=== PATIENT | male | born 1995 | race Caucasian/White ===

== ENCOUNTER 2017-04-01 23:21 | Emergency (ER) | payer OTHER, SELFPAY ==
[~2017-04-01] VITALS: Ht 177.8 cm; Wt 61.2 kg
[~2017-04-01 23:21] MED LIST: CONC36TA2 PO; CONC36TA4 PO; GUAN1TA PO; INTU2TAB PO; INTUNIV PO; MELO7.5S PO; OMEP40CA2 PO; RISP0.5T23 PO; RISP0.5T3 PO; RISP1TAB41 PO; TRAM50TA2 PO; ZOLO20CO PO; ZOLO25TA PO
[2017-04-01 23:22] VITALS: BP 134/74
[2017-04-02] MEDS ORDERED: KETOROLAC 30 MG/ML VIAL (J1885) IV ONE (01:45)
[2017-04-02] MEDS ORDERED: KETOROLAC 60 MG/2 ML VIAL (J1885) IM ONE (02:00)
--- NOTE | 2017-04-02 08:49 | REP ---
Right elbow: Four views Mineralization and joint spaces are normal. There is no fracture or dislocation. There is no effusion. There are no calcifications or foreign bodies. Impression: Negative right elbow. Signed by Al Morel MD 04/02/2017 08:40 A
== END 2017-04-02 02:03 | disposition home or self-care (01) ==
LOC: M ED 23:44
DX: S50.01XA Contusion of right elbow, initial encounter (principal); W51.XXXA Accidental striking against or bumped into by another person, initial encounter; Y92.410 Unspecified street and highway as the place of occurrence of the external cause; Y93.89 Activity, other specified; Y99.8 Other external cause status; F32.9 Major depressive disorder, single episode, unspecified; F17.200 Nicotine dependence, unspecified, uncomplicated; Z91.02 Food additives allergy status

== ENCOUNTER → 2017-05-19 | Outpatient (REF) | payer OTHER ==
[~2017-05-19] MED LIST changes: +ACET30TAB PO; +AMOX875T PO; +LEVA750T7 PO; -RISP1TAB41 PO; +RISP1TAB42 PO
== END ==
LOC: M LAB REF 16:20
PROVIDERS: ATTEND Physician Assistant Medical
DX: Z20.2 Contact with and (suspected) exposure to infections with a predominantly sexual mode of transmission (principal)

== ENCOUNTER 2017-08-15 06:12 | Emergency (ER) | payer OTHER, SELFPAY ==
[~2017-08-15] VITALS: Ht 175.3 cm; Wt 64.0 kg
[~2017-08-15 06:12] MED LIST changes: -ACET30TAB PO; -AMOX875T PO; -LEVA750T7 PO
[2017-08-15 06:22] VITALS: BP 133/83
[2017-08-15] MEDS ORDERED: ACET30TAB PO (07:01)
[2017-08-15] MEDS ORDERED: AMOX875T PO (07:01)
[2017-08-25] MEDS ORDERED: LEVA750T7 PO (07:30)
== END 2017-08-15 07:21 | disposition home or self-care (01) ==
LOC: M ED 06:12
DX: K02.9 Dental caries, unspecified (principal); F99 Mental disorder, not otherwise specified; Z79.899 Other long term (current) drug therapy; Z91.048 Other nonmedicinal substance allergy status; F17.210 Nicotine dependence, cigarettes, uncomplicated

== ENCOUNTER 2017-10-02 22:09 | Emergency (ER) | payer OTHER ==
[~2017-10-02] VITALS: Ht 180.3 cm; Wt 59.1 kg
[~2017-10-02 22:09] MED LIST changes: +ACET30TAB PO; +AMOX875T PO; +LEVA750T7 PO
[2017-10-03 00:03] VITALS: BP 141/61
[2017-10-03] MEDS ORDERED: ACETAMINOPHEN 325 MG TAB PO ONE (00:15)
--- NOTE | 2017-10-03 07:45 | REP ---
PA and lateral chest: Comparison is 12/27/2013. The lung [place] are clear. The cardiac size is normal The rand, mediastinum, and bony thorax are unremarkable. Impression: Negative PA and lateral chest. There is no interval change. Signed by Al Morel MD 10/03/2017 07:36 A
== END 2017-10-03 00:15 | disposition home or self-care (01) ==
LOC: M ED 22:09
DX: B34.9 Viral infection, unspecified (principal); J45.909 Unspecified asthma, uncomplicated; F90.9 Attention-deficit hyperactivity disorder, unspecified type; Z91.02 Food additives allergy status

== ENCOUNTER 2017-10-20 00:46 | Emergency (ER) | payer OTHER ==
[2017-10-20] MEDS: methylPREDNISolone INJ 125 MG/2 ML VIAL (J2930) IM (02:30)
== END 2017-10-20 02:33 | disposition home or self-care (01) ==
LOC: M ED 00:46
DX: J06.9 Acute upper respiratory infection, unspecified (principal); J40 Bronchitis, not specified as acute or chronic; F90.9 Attention-deficit hyperactivity disorder, unspecified type; F17.210 Nicotine dependence, cigarettes, uncomplicated; Z91.02 Food additives allergy status
CPT/HCPCS: 71020

== ENCOUNTER 2017-11-18 22:57 | Emergency (ER) | payer OTHER | END 2017-11-19 00:33 | disposition left against medical advice (07) | LOC: M ED 22:57 | DX: Z53.21 Procedure and treatment not carried out due to patient leaving prior to being seen by health care provider (principal) ==

== ENCOUNTER 2018-07-03 01:43 | Emergency (ER) | payer OTHER ==
[2018-07-03] MEDS: CEPHALEXIN 500 MG CAP PO (02:07)
[2018-07-03] MEDS: IBUPROFEN 600 MG TAB PO (02:07)
== END 2018-07-03 02:15 | disposition home or self-care (01) ==
LOC: M ED 01:43
DX: L60.0 Ingrowing nail (principal); F17.200 Nicotine dependence, unspecified, uncomplicated
CPT/HCPCS: 99282

== ENCOUNTER 2018-07-19 02:45 | Emergency (ER) | payer OTHER | END 2018-07-19 03:51 | disposition home or self-care (01) | LOC: M ED 02:45 | DX: K03.2 Erosion of teeth (principal); K08.89 Other specified disorders of teeth and supporting structures; F17.200 Nicotine dependence, unspecified, uncomplicated; Z79.2 Long term (current) use of antibiotics; Z91.02 Food additives allergy status | CPT/HCPCS: 64400 ==

== ENCOUNTER 2018-12-14 03:47 | Emergency (ER) | payer OTHER ==
[~2018-12-14] VITALS: Ht 180.3 cm; Wt 60.9 kg
[~2018-12-14 03:47] MED LIST changes: +ACET1TAB55 PO; +AMOX875T; +CLEO300C2 PO; +KEFL500C17 PO; +PRED20TA PO; +ZITHTAB PO
[2018-12-14] MEDS ORDERED: PROAAER10 INH (03:55)
[2018-12-14] MEDS ORDERED: NS 1,000 ML IV ONE (04:15)
[2018-12-14] MEDS ORDERED: BENZONATATE 100 MG CAP PO ONE (04:30)
[2018-12-14 04:47] LABS: INFLUENZA A AMPLIFICATION NEGATIVE (NEGATIVE); INFLUENZA B AMPLIFICATION NEGATIVE (NEGATIVE)
[2018-12-14] MEDS ORDERED: ALBUTEROL 90 MCG/ACT 8GM HFA INHALER INH ONE (05:00)
[2018-12-14] MEDS ORDERED: TESS100C PO (05:05)
[2018-12-14 05:15] VITALS: BP 130/69
--- NOTE | 2018-12-14 06:00 | REP ---
Clinical: Cough and dyspnea . Comparison: 10/20/2017 . Technique: PA and lateral. Findings: The mediastinum and cardiac silhouette are normal. The lung [place] are clear and without acute consolidation, effusion, or pneumothorax. The skeletal structures are intact and normal. Impression: 1. No acute cardiopulmonary process. Electronically Signed by Jason Contreras MD 12/14/2018 05:51 A
== END 2018-12-14 05:16 | disposition home or self-care (01) ==
LOC: M ED 03:47
DX: J06.9 Acute upper respiratory infection, unspecified (principal); J45.909 Unspecified asthma, uncomplicated; Z72.0 Tobacco use; Z91.02 Food additives allergy status

== ENCOUNTER 2018-12-18 01:11 | Emergency (ER) | payer OTHER ==
[~2018-12-18] VITALS: Ht 180.3 cm; Wt 63.6 kg
[~2018-12-18 01:11] MED LIST changes: +PROAAER10 INH; +TESS100C PO
[2018-12-18] MEDS ORDERED: ACETAMINOPHEN 325 MG TAB PO ONE (02:15)
[2018-12-18 02:23] VITALS: BP 134/74
--- NOTE | 2018-12-18 08:35 | REP ---
Clinical: Pain and swelling. Technique: AP, lateral, bilateral oblique and sunrise views of the right knee. Findings: Lateral and sunrise views suggests anterior swelling and possible small suprapatellar effusion. The osseous structures and joint spaces are otherwise intact and normal. No acute fracture dislocation. Impression: Swelling and possible suprapatellar effusion. Electronically Signed by Jason Contreras MD 12/18/2018 08:26 A
== END 2018-12-18 02:26 | disposition home or self-care (01) ==
LOC: M ED 01:11
DX: M25.561 Pain in right knee (principal); J45.909 Unspecified asthma, uncomplicated; M54.9 Dorsalgia, unspecified; K08.89 Other specified disorders of teeth and supporting structures; F17.200 Nicotine dependence, unspecified, uncomplicated; Z91.048 Other nonmedicinal substance allergy status

== ENCOUNTER → 2019-03-23 | Outpatient (REF) | payer OTHER ==
[~2019-03-23] MED LIST changes: +ACET-716 PO; -ACET30TAB PO
[2019-03-24 17:01] LABS: CHLAMYDIA DNA AMPLIFICATION NEGATIVE (NEGATIVE); GC DNA AMPLIFICATION NEGATIVE (NEGATIVE)
== END ==
LOC: M LAB REF 12:00
PROVIDERS: ATTEND Physician Assistant Medical
DX: A64 Unspecified sexually transmitted disease (principal)

== ENCOUNTER 2019-10-06 00:27 | Emergency (ER) | payer OTHER ==
[~2019-10-06] VITALS: Ht 180.3 cm; Wt 63.6 kg
[~2019-10-06 00:27] MED LIST changes: -OMEP40CA2 PO; +OMEP40CA97 PO
[2019-10-06] MEDS ORDERED: SERT-138 PO (00:34)
[2019-10-06] MEDS ORDERED: TRAZ-252 PO (00:34)
[2019-10-06] MEDS ORDERED: LIDOCAINE 1% MDV 20ML VIAL IM ONE (01:45)
[2019-10-06] MEDS ORDERED: AUGMENTIN 875 MG TAB PO ONE (02:15)
[2019-10-06] MEDS ORDERED: AUGM875T28 PO (02:20)
[2019-10-06 02:21] VITALS: BP 128/78
[2019-10-06] MEDS ORDERED: NEOSPORIN OINT 0.9 GM PKT (FLOOR STOCK) As Ordered ONE (02:24)
== END 2019-10-06 02:35 | disposition home or self-care (01) ==
LOC: M ED 00:27
DX: S61.210A Laceration without foreign body of right index finger without damage to nail, initial encounter (principal); W54.0XXA Bitten by dog, initial encounter; Y92.098 Other place in other non-institutional residence as the place of occurrence of the external cause; J45.909 Unspecified asthma, uncomplicated; K21.9 Gastro-esophageal reflux disease without esophagitis; F17.200 Nicotine dependence, unspecified, uncomplicated; Z91.048 Other nonmedicinal substance allergy status; Z79.899 Other long term (current) drug therapy

== ENCOUNTER 2019-10-19 12:46 | Emergency (ER) | payer OTHER ==
[~2019-10-19] VITALS: Ht 180.3 cm; Wt 59.3 kg
[2019-10-19 12:47] VITALS: BP 132/60
[2019-10-19] MEDS ORDERED: NEOSPORIN OINT 0.9 GM PKT (FLOOR STOCK) As Ordered ONE (14:34)
[2019-10-19] MEDS ORDERED: NEOSPORIN OINT 0.9 GM PKT (FLOOR STOCK) TOP ONE (14:45)
== END 2019-10-19 14:38 | disposition home or self-care (01) ==
LOC: M ED 12:46
DX: Z48.02 Encounter for removal of sutures (principal); W54.0XXD Bitten by dog, subsequent encounter; J45.909 Unspecified asthma, uncomplicated; K21.9 Gastro-esophageal reflux disease without esophagitis; M54.9 Dorsalgia, unspecified; F32.9 Major depressive disorder, single episode, unspecified; F41.9 Anxiety disorder, unspecified; Z91.02 Food additives allergy status

== ENCOUNTER → 2019-10-19 | Outpatient (CLI) | payer OTHER ==
[~2019-10-19] MED LIST changes: +AUGM875T28 PO; +SERT-138 PO; +TRAZ-252 PO
--- NOTE | 2019-10-22 | ECGEPIP ---
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
== END ==
LOC: M EKG 12:24
PROVIDERS: ATTEND Nurse Practitioner Psychiatric/Mental Health
DX: F90.2 Attention-deficit hyperactivity disorder, combined type (principal)

== ENCOUNTER 2019-12-06 00:16 | Emergency (ER) | payer OTHER ==
[~2019-12-06] VITALS: Ht 180.3 cm; Wt 83.6 kg
[2019-12-06] MEDS ORDERED: INTU1TAB PO (00:26)
[2019-12-06] MEDS ORDERED: RISP0.5T21 PO (00:26)
[2019-12-06 01:17] LABS: INFLUENZA A AMPLIFICATION POSITIVE (NEGATIVE); INFLUENZA B AMPLIFICATION NEGATIVE (NEGATIVE)
[2019-12-06] MEDS ORDERED: IBUPROFEN 600 MG TAB PO ONE (05:15)
[2019-12-06] MEDS ORDERED: NS 1,000 ML IV ONE (05:15)
[2019-12-06 05:43] LABS: BASO # 0.1 10^3/uL (0.0-0.2); EOS % 0.4 % (0.0-3.0); HEMOGLOBIN 15.1 g/dl (13.5-17.5); LYMPH # 0.7 10^3/uL (1.5-5.0); LYMPH % 13.2 % (24.0-44.0); MEAN CORPUSCULAR HEMOGLOBIN 29.4 pg (27.0-33.0); MEAN CORPUSCULAR HGB CONC 33.6 g/dl (32.0-36.5); MEAN CORPUSCULAR VOLUME 87.7 fl (80.0-96.0); MONO # 0.5 10^3/uL (0.0-0.8); MONO % 10.1 % (0.0-5.0); NEUTROPHILS # 3.9 10^3/uL (1.5-8.5); NEUTROPHILS % 75.1 % (36.0-66.0); PLATELET COUNT, AUTOMATED 175 10^3/uL (150-450); RED BLOOD COUNT 5.13 10^6/uL (4.30-6.10); WHITE BLOOD COUNT 5.2 10^3/uL (4.0-10.0)
[2019-12-06 05:54] LABS: INR 1.17; PROTHROMBIN TIME 14.6 SECONDS (11.8-14.0)
[2019-12-06 05:55] LABS: PARTIAL THROMBOPLASTIN TIME 35.8 SECONDS (25.0-38.4)
--- NOTE | 2019-12-06 05:56 | REPVR ---
PROCEDURE INFORMATION: Exam: CT Chest Without Contrast Exam date and time: 12/06/2019 5:09 AM Age: 24 years old Clinical indication: Shortness of breath; Patient HX: Flu like symptoms; Additional info: SOB TECHNIQUE: Imaging protocol: Computed tomography of the chest without contrast. Radiation optimization: All CT scans at this facility use at least one of these dose optimization techniques: automated exposure control; mA and/or kV adjustment per patient size (includes targeted exams where dose is matched to clinical indication); or iterative reconstruction. COMPARISON: CR Chest, 2 view PA, Lat 12/06/2019 12:35 AM FINDINGS: Lungs: There is mild central bronchial wall thickening. Pleural space: Unremarkable. No pneumothorax. No pleural effusion. Heart: Unremarkable. No cardiomegaly. No pericardial effusion. Mediastinum: There is small soft tissue attenuation in the anterior mediastinum likely residual thymic tissue. Aorta: Unremarkable. No aortic aneurysm. Lymph nodes: Small shotty pretracheal lymph nodes are seen. Bones/joints: Unremarkable. No acute fracture. Soft tissues: Unremarkable. IMPRESSION: 1. Mild central bronchial wall thickening suggestive of an element of bronchitis. 2. No focal consolidations seen. 3. Small anterior mediastinal residual thymic tissue. Electronically signed by: Beau Robertson On 12/06/2019 05:55:44 AM
--- NOTE | 2019-12-06 06:00 | REPVR ---
PROCEDURE INFORMATION: Exam: CT Abdomen And Pelvis Without Contrast Exam date and time: 12/06/2019 5:09 AM Age: 24 years old Clinical indication: Abdominal pain; Flank; Other: Bilateral; Patient HX: Flu like symptoms; Additional info: B/l flank pain TECHNIQUE: Imaging protocol: Computed tomography of the abdomen and pelvis without contrast. Radiation optimization: All CT scans at this facility use at least one of these dose optimization techniques: automated exposure control; mA and/or kV adjustment per patient size (includes targeted exams where dose is matched to clinical indication); or iterative reconstruction. COMPARISON: CT ABD/PEL W/IV ORAL CONTRAS 08/25/2017 6:02 AM FINDINGS: Liver: Normal. No mass. Gallbladder and bile ducts: Normal. No calcified stones. No ductal dilation. Pancreas: Normal. No ductal dilation. Spleen: The spleen is mildly enlarged measuring 13.9 x 9.9 x 9.0 cm with splenic index of 644 (normal less than 450). Adrenals: Normal. No mass. Kidneys and ureters: Normal. No hydronephrosis. Stomach and bowel: There is some gaseous distended small bowel loops and others are nondistended with questionable wall thickening coupled with mesenteric haziness. Appendix: No evidence of appendicitis. Intraperitoneal space: Unremarkable. No free air. No significant fluid collection. Vasculature: Unremarkable. No abdominal aortic aneurysm. Lymph nodes: Unremarkable. No enlarged lymph nodes. Bladder: The urinary bladder is contracted limiting its evaluation. Reproductive: Unremarkable as visualized. Bones/joints: Unremarkable. No acute fracture. Soft tissues: Unremarkable. IMPRESSION: 1. Questionable findings of enteritis. Correlate clinically. 2. Mild splenomegaly. Electronically signed by: Beau Robertson On 12/06/2019 05:59:49 AM
[2019-12-06 06:14] LABS: ALBUMIN 4.5 GM/DL (3.2-5.2); ALT/SGPT 31 U/L (12-78); BILIRUBIN,DIRECT 0.2 MG/DL (0.0-0.2); BILIRUBIN,TOTAL 0.5 MG/DL (0.2-1.0); BLOOD UREA NITROGEN 9 MG/DL (7-18); CALCIUM LEVEL 9.3 MG/DL (8.5-10.1); CARBON DIOXIDE LEVEL 26 MEQ/L (21-32); CHLORIDE LEVEL 102 MEQ/L (98-107); CK-MB VALUE MASS < 1.0 NG/ML (<3.6); CPK CREATINE PHOSPHOKINASE 105 U/L (39-308); CREATININE FOR GFR 0.83 MG/DL (0.70-1.30); FREE T4 0.99 NG/DL (0.76-1.46); GLOMERULAR FILTRATION RATE > 60.0 (>60); GLUCOSE, FASTING 105 MG/DL (70-100); LIPASE 49 U/L (73-393); MB/CK RELATIVE INDEX 0.95 (< OR =4); SODIUM LEVEL 137 MEQ/L (136-145); TOTAL PROTEIN 7.6 GM/DL (6.4-8.2); TROPONIN I < 0.02 NG/ML (< 0.10)
[2019-12-06 06:15] VITALS: BP 107/53
[2019-12-06] MEDS ORDERED: OSEL75CA PO (06:17)
[2019-12-06] MEDS ORDERED: ACETAMINOPHEN TAB 650MG DOSE (2X325MG) PO ONE (06:30)
[2019-12-06] MEDS ORDERED: OSELTAMIVIR PHOSPHATE 75 MG CAP (TAMIFLU) PO ONE (06:30)
--- NOTE | 2019-12-06 07:31 | REP ---
Clinical: Dyspnea . Comparison: 12/14/2018 . Technique: PA and lateral. Findings: The mediastinum and cardiac silhouette are normal. The lung [place] are clear and without acute consolidation, effusion, or pneumothorax. The skeletal structures are intact and normal. Impression: 1. No acute cardiopulmonary process. Electronically Signed by Jason Contreras MD 12/06/2019 07:23 A
--- NOTE | 2019-12-06 18:53 | ED PDOC ---
Post-Departure Follow-Up dr greenberg faxed formal report of ct abd/p for fu Eb Nguyen MD Dec 06, 2019 18:53
--- NOTE | 2019-12-07 04:49 | ECGEPIP ---
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
== END 2019-12-06 06:53 | disposition home or self-care (01) ==
LOC: M ED 00:16
DX: J09.X2 Influenza due to identified novel influenza A virus with other respiratory manifestations (principal); Z79.899 Other long term (current) drug therapy; Z91.018 Allergy to other foods

== ENCOUNTER 2020-01-06 13:14 | Emergency (ER) | payer OTHER ==
[~2020-01-06] VITALS: Ht 180.3 cm; Wt 65.9 kg
[~2020-01-06 13:14] MED LIST changes: +INTU1TAB PO; +OSEL75CA PO; +RISP0.5T21 PO
[2020-01-06] MEDS ORDERED: IBUPROFEN 800 MG TAB PO ONE (14:30)
[2020-01-06 14:40] VITALS: BP 127/65
--- NOTE | 2020-01-07 07:42 | REP ---
REASON FOR EXAM: Pain after trauma. COMPARISON: No priors. FINDINGS: No acute fracture or destructive osseous lesion. The mortise is intact. Electronically Signed by Eran Lezama DO 01/07/2020 01:28 P
--- NOTE | 2020-01-07 07:43 | REP ---
REASON: Pain after trauma. FINDINGS: The joint spaces are symmetric and relatively well maintained. There is no evidence of acute fracture or destructive osseous lesion. IMPRESSION: Negative. Electronically Signed by Eran Lezama DO 01/07/2020 01:28 P
--- NOTE | 2020-01-07 07:45 | REP ---
REASON: Pain after trauma. FINDINGS: No acute fracture or destructive osseous lesion. Electronically Signed by Eran Lezama DO 01/07/2020 01:29 P
== END 2020-01-06 14:40 | disposition home or self-care (01) ==
LOC: M ED 13:14
DX: S93.402A Sprain of unspecified ligament of left ankle, initial encounter (principal); S93.602A Unspecified sprain of left foot, initial encounter; S90.02XA Contusion of left ankle, initial encounter; W10.9XXA Fall (on) (from) unspecified stairs and steps, initial encounter; Y92.9 Unspecified place or not applicable; Y93.9 Activity, unspecified; Y99.9 Unspecified external cause status; F41.9 Anxiety disorder, unspecified; F32.9 Major depressive disorder, single episode, unspecified; F90.9 Attention-deficit hyperactivity disorder, unspecified type; J45.909 Unspecified asthma, uncomplicated; F17.200 Nicotine dependence, unspecified, uncomplicated; Z79.899 Other long term (current) drug therapy; Z91.89 Other specified personal risk factors, not elsewhere classified

== ENCOUNTER → 2020-06-05 | Outpatient (CLI) | payer OTHER ==
[2020-07-09 13:01] LABS: HEMATOCRIT 45.6 % (42.0-52.0); HEMOGLOBIN 15.4 g/dl (13.5-17.5); MEAN CORPUSCULAR HEMOGLOBIN 29.7 pg (27.0-33.0); MEAN CORPUSCULAR HGB CONC 33.8 g/dl (32.0-36.5); PLATELET COUNT, AUTOMATED 201 10^3/uL (150-450); RED BLOOD COUNT 5.18 10^6/uL (4.30-6.10); WHITE BLOOD COUNT 6.3 10^3/uL (4.0-10.0)
[2020-07-09 13:02] LABS: ERYTHROCYTE SEDIMENTATION RATE 3 mm/hr (0-15)
[2020-07-13 14:23] LABS: ANTINUCLEAR ANTIBODIES DIRECT See Separate Report; Lyme Disease IgG/IgM Antibodie See Separate Report
[2020-07-21 11:23] LABS: C REACTIVE PROTEIN QUANTITATIV < 0.30 MG/DL (0.00-0.30); RHEUMATOID FACTOR QUANT < 10.0 IU/ML (<15.0); URIC ACID 6.9 MG/DL (3.5-7.2)
== END ==
LOC: M LAB 12:09
PROVIDERS: ATTEND Physician Assistant Surgical
DX: M25.561 Pain in right knee (principal)

== ENCOUNTER 2025-06-23 18:00 | Emergency (ER) | payer MEDICAID, OTHER ==
[~2025-06-23] VITALS: Ht 180.3 cm; Wt 61.3 kg
[~2025-06-23 18:00] MED LIST changes: +OMEP40CA4 PO; -OMEP40CA97 PO; -RISP0.5T3 PO; +RISP0.5T82 PO
[2025-06-23 18:51] LABS: BASO # 0.0 10^3/uL (0.0-0.2); BASO % 0.9 % (0.0-1.0); EOS # 0.0 10^3/uL (0.0-0.5); EOS % 0.4 % (0.0-3.0); LYMPH # 0.3 10^3/uL (1.5-5.0); LYMPH % 6.9 % (24.0-44.0); MONO # 0.7 10^3/uL (0.0-0.8); MONO % 15.4 % (2.0-8.0); NEUTROPHILS # 3.4 10^3/uL (1.5-8.5); NEUTROPHILS % 76.0 % (36.0-66.0); PLATELET COUNT, AUTOMATED 160 10^3/uL (150-450)
[2025-06-23] MEDS: ACETAMINOPHEN 500 MG TAB PO ONE (18:53)
[2025-06-23 19:13] LABS: CALCIUM LEVEL 9.6 MG/DL (8.5-10.1); CARBON DIOXIDE LEVEL 28 MMOL/L (20-31); CHLORIDE LEVEL 104 MMOL/L (98-107); CREATININE FOR GFR 0.82 MG/DL (0.70-1.30); GLOMERULAR FILTRATION RATE > 90.0 (>60); POTASSIUM SERUM 4.2 MMOL/L (3.5-5.1); SODIUM LEVEL 140 MMOL/L (136-145)
[2025-06-23] MEDS: IBUPROFEN 600 MG TAB PO ONE (20:08)
[2025-06-23] MEDS ORDERED: NIRM1TAB PO (21:52)
[2025-06-23 22:00] VITALS: TEMP 100; O2SAT 97
[2025-06-23 22:01] VITALS: BP 106/54
[2025-06-23 22:26] LABS: CK-MB VALUE MASS < 1.0 NG/ML (<3.6)
[2025-06-23 22:34] LABS: CPK CREATINE PHOSPHOKINASE 95 U/L (46-171)
== END 2025-06-23 22:17 | disposition home or self-care (01) ==
LOC: M ED 18:00
DX: U07.1 COVID-19 (principal); R00.0 Tachycardia, unspecified; K21.9 Gastro-esophageal reflux disease without esophagitis; Z88.8 Allergy status to other drugs, medicaments and biological substances; Z79.899 Other long term (current) drug therapy